=== PATIENT | female | born 1960 | race Caucasian/White ===

== ENCOUNTER → 2016-07-02 | Outpatient (CLI) | payer OTHER ==
--- NOTE | 2016-07-02 16:43 | MA ---
CORRECTED ORDER Screening Digital Mammogram With iCAD Analysis Clinical Indications: Routine screening. A grandmother was diagnosed with breast cancer in her 60s. The patient has had a benign left breast biopsy. Technique: Standard cephalocaudal projections are obtained. Digital breast tomosynthesis was performed in the MLO projection with reconstruction at 1.0 mm slice thickness and composite MLO views reconstructed. This examination is processed by the iCAD computer aided detection system. Comparison: May 2015, May 2013, September 2011, November 2010, December 2009. Breast density: Type B; Scattered fibroglandular densities. Findings: CAD was reviewed. No masses, suspicious calcifications or secondary signs of malignancy are seen. There has been no significant change in the appearance of either breast. Impression: Negative mammogram. BI-RADS 1. Recommendation: Routine mammographic screening in one year. [facility] will send a result letter to the patient. Negative mammography should not preclude additional workup of a clinically suspicious finding. The patient's information is entered into a reminder system with a target due date for her next mammogram. [facility]
== END ==
LOC: FIMAGING 13:34
DX: Z12.31 Encounter for screening mammogram for malignant neoplasm of breast (principal); Z80.3 Family history of malignant neoplasm of breast
CPT/HCPCS: G0202

== ENCOUNTER 2017-04-05 15:39 | Emergency (ER) | payer OTHER ==
[2017-04-05 15:59] VITALS: BP 109/75; PULSE 81; RESP 16; TEMP 98.2; O2SAT 92
--- NOTE | 2017-04-05 16:36 | EDPHY ---
H & P Time Seen by Provider: 04/05/17 16:03 HPI/ROS: CHIEF COMPLAINT: left arm pain HISTORY OF PRESENT ILLNESS: 56-year-old female presents after a fall with left arm pain. She was walking up some stairs with her hands in her pockets when she tripped and fell forward, striking her left upper arm on the concrete stair. Immediate onset of moderate upper arm pain. She then went out to lunch and had 2 margaritas. She took 400 mg of ibuprofen prior to arrival. No other injuries. She did not hit her head; no headache or neck pain. ROS: No numbness, weakness, excessive bleeding, syncopal episode, other injury. Past Medical/Surgical History: Chronic pain Cholecystectomy Social History: Recent alcohol use Smoking Status: Never smoked Physical Exam: Alert and oriented, pleasant Extremities: left upper extremity-small area of ecchymosis mid aspect of upper arm, with associated tenderness over this area; no pain with shoulder/elbow/ wrist pain range of motion Skin: intact Neuro: Motor and sensory intact Vascular: Capillary refill brisk distally Constitutional: Initial Vital Signs Temperature (C) 36.8 C 04/05/17 15:56 Heart Rate 81 04/05/17 15:56 Respiratory Rate 16 04/05/17 15:56 Blood Pressure 109/75 04/05/17 15:56 O2 Sat (%) 92 04/05/17 15:56 O2 Delivery Mode Room Air Allergies/Adverse Reactions: hydrocodone bitartrate [From Vicodin] Allergy (Unknown, Verified 04/05/17 15:54) RASH SWELLING penicillin G Allergy (Unknown, Verified 04/05/17 15:54) acetaminophen [From Percocet] Allergy (Verified 04/05/17 15:54) RASH AND SWELLING oxycodone HCl [From Percocet] Allergy (Verified 04/05/17 15:54) RASH AND SWELLING Home Medications: Medication Instructions Recorded Bioidentical Hormone Cream 1 ceci TP BID 12/11/14 Testosteone Compounded 1 cap PO DAILY 12/11/14 Medical Decision Making - Diagnostics Imaging Results: X-ray independently reviewed by me reveals no acute fracture. Imaging: I viewed and interpreted images myself ED Course/Re-evaluation: Sling placed. Departure - Departure Disposition: Home, Routine, Self-Care Clinical Impression: Contusion of left upper arm Qualifiers: Encounter type: initial encounter Qualified Code(s): S40.022A - Contusion of left upper arm, initial encounter Condition: Good Instructions: Contusion in Adults (ED) Additional Instructions: Ibuprofen 600 mg 3 times daily while the pain persists. Use the sling as needed for pain. You will have more pain tomorrow. Referrals: Doris Flores MD [Primary Care Provider] - 5-7 days, if not improved
== END 2017-04-05 16:46 | disposition home or self-care (01) ==
LOC: CED 15:39
DX: S40.022A Contusion of left upper arm, initial encounter (principal); W01.198A Fall on same level from slipping, tripping and stumbling with subsequent striking against other object, initial encounter; Y99.8 Other external cause status; Y93.01 Activity, walking, marching and hiking
CPT/HCPCS: 73060-PO; A4565

== ENCOUNTER → 2017-10-06 | Outpatient (CLI) | payer OTHER | LOC: FIMAGING 15:02 | PROVIDERS: ATTEND Family Medicine | DX: Z12.31 Encounter for screening mammogram for malignant neoplasm of breast (principal) ==